=== PATIENT | male | born 1990 | race Caucasian/White ===

== ENCOUNTER 2018-03-21 21:00 | Emergency (ER) | payer OTHER ==
[2018-03-21 21:04] VITALS: BP 147/72
--- NOTE | 2018-03-21 21:32 | EDPHY ---
General Time Seen by Provider: 03/21/18 21:20 Narrative: CHIEF COMPLAINT: I cut my finger HISTORY OF PRESENT ILLNESS: Patient presents by private vehicle with spouse with complaints of cutting his right pinky finger. He states that he was cutting open just prior to arrival when his hand slipped down the knife, accidentally cutting the palmar side of his right 5th finger. He noted some pain at the time which is nearly resolved. Bleeding has stopped with simple pressure. He has no numbness or tingling. No difficulty bending or straightening the finger. No injury to the palm or elsewhere. He reports his tetanus is up-to-date less than 2 years. He has no injury elsewhere. Mild tenderness to palpation. Improved at rest. Does not radiate. No other associated complaints or modifying factors. TIME OF INJURY: Less than 1 hr prior to arrival TETANUS STATUS: Up-to-date less than 2 years MEDICAL/SURGICAL/SOCIAL HISTORY: Uncomplicated. Lives independently with his spouse and child. Nonsmoker. Full -time Linguist most in the [employer] REVIEW OF SYSTEMS: Ten systems reviewed and are negative unless otherwise noted in the HPI EXAMINATION General Appearance: Alert, no distress Head: normocephalic, atraumatic Cardiovascular: Radial pulses are symmetric at 2+. There is brisk cap refill the fingers the right hand. No cyanosis or pallor Neurological: A&O, 2 point sensory symmetric, block mason and interossei strength symmetric Skin: Warm and dry, no rash. 2 cm laceration to the right 5th finger, palmar side over the PIP joint. No exposure of the flexor tendon apparatus. No foreign body. No pulsatile bleeding per Extremities: Minimal tenderness over the right 5th finger laceration. Full extension and flexion including superficialis and profundus. DIFFERENTIAL DIAGNOSES: Including but not limited to laceration, laceration complication, laceration foreign body, laceration with deep tissue injury MDM: 9:20 p.m. 2 cm laceration over the right 5th finger, proximal phalanx, palmar side. No evidence of tendon injury or deep tissue structure injury. No foreign body. No pulsatile bleeding. Tetanus up-to-date. I have administered a digital block. Proceed with irrigation re-evaluation. 9:45 p.m. Wound has been re-evaluated and closed after copious irrigation. Remains range of motion intact good signs of perfusion. Wound was closed without difficulty as below. We discussed simple wound care. We discussed ED precautions. He will return here in 7-10 days for suture removal. Have answered all his questions. Discharged home stable condition. PROCEDURE: Digital Block Indication: Finger laceration Consent: Verbal Location: Right 5th finger Anesthesia: Lidocaine 1% plain, 0.25% Marcaine plain, 5mL Description: Base of the finger was prepped. The above was infused without difficulty. Tolerated well. Good anesthesia. Complications: None PROCEDURE: Laceration repair Consent: Verbal Location: Right 5th finger Length of repair: 2 cm Complexity: Simple Layer involvement: Single Anesthesia: Digital block Irrigation: Extensive Debridement: None Procedure description: Following good anesthesia, the wound was copiously irrigated. Wound bed was explored with a sterile glove, and there is no foreign body noted. Wound borders were approximated well with good hemostasis. Tolerated well without complication. Suture/Staple material: 5-0 Prolene, 2 simple ruptured sutures Wound care: Routine as discussed Suture/Staple removal: 7-10 Days SUPERVISION: This patient was independently evaluated without direct involvement of or examination by the attending physician. ED Precautions: Worsening pain. Erythema, edema, cyanosis, pallor, paresthesia or anesthesia. - History Smoking Status: Never smoked - Objective Vital Signs: Initial Vital Signs Temperature (C) 98.6 F 03/21/18 21:01 Heart Rate 64 03/21/18 21:01 Respiratory Rate 18 03/21/18 21:01 Blood Pressure 147/72 H 03/21/18 21:01 O2 Sat (%) 97 03/21/18 21:01 O2 Delivery Mode Room Air Allergies/Adverse Reactions: No Known Allergies Allergy (Unverified 03/21/18 21:03) Home Medications: Medication Instructions Recorded NK [No Known Home Meds] 03/21/18 Departure - Departure Disposition: Home, Routine, Self-Care Clinical Impression: Laceration of right little finger without damage to nail Qualifiers: Encounter type: initial encounter Foreign body presence: without foreign body Qualified Code(s): S61.216A - Laceration without foreign body of right little finger without damage to nail, initial encounter Condition: Good Instructions: Care For Your Stitches (ED), Laceration (ED) Additional Instructions: 1. Thin layer of bacitracin once daily for the next 2 days 2. Keep the wound covered while showering for the next 3 days 3. Daily wound care as discussed 4. Return here for suture removal in 7-10 days 5. Return here for signs of infection as discussed including warmth, redness, fever, drainage from the site 6. return here for increasing pain surrounding the laceration 7. Do not submerge the wound in any water, hot tub, swimming pool until sutures removed Referrals: Physician,Emergency DeptMD [Medical Doctor] - As per Instructions Yesenia Nick MD [Medical Doctor] - As per Instructions
--- NOTE | 2018-03-28 13:51 | EDPHY ---
NOA Addendum - Addendum .: I was asked to evaluate this patient by the ED valve technician for evaluation of his suture removal. I placed the sutures myself. I evaluated the patient, and he is complaining of difficulty bending the tip of his injured finger. I reviewed my note from previous and he was able to bend the finger at the time of suture repair. He says that over the past few days he has not felt like he could move it very well. He does seem to have deficit in flexion of the D IP joint of the right pinky finger. The suture line is intact and ready for suture removal. I will discuss with the hand surgeon Dr. De Jesus. 1:55 p.m. I discussed with Dr. De Jesus. He would like to see the patient is office early this week. I provided the information to patient. Sutures will be removed be discharged stable condition with follow-up with hand surgeon the next few days.
== END 2018-03-21 21:56 | disposition home or self-care (01) ==
PROC: 0HQFXZZ Repair Right Hand Skin, External Approach (ICD-10-PCS; principal; 2018-03-21)
DX: S61.216A Laceration without foreign body of right little finger without damage to nail, initial encounter (principal); W26.0XXA Contact with knife, initial encounter; Y92.9 Unspecified place or not applicable; Y93.9 Activity, unspecified; Y99.9 Unspecified external cause status

== ENCOUNTER 2018-05-07 13:38 | Day surgery (SDC) | payer OTHER ==
--- NOTE | 2018-05-06 16:34 | PDGENHP ---
History & Physical Chief Complaint: Right small finger flexor tendon laceration History of Present Illness: Erik sustained a laceration to his right small finger FDP approximately 6 weeks ago while carving a pumpkin. Pertinent Past, Social, Family History: PMH: migraines. SH: non-contributory. FH: non-contributory Relevant Physical Exam: Well healed 1.5cm laceration overlying the right small finger volar proximal phalanx. AROM of the MCPJ and PIPJ are full. AROM of the DIPJ 0. PROM of the DIPJ 0-75. Sensation intact to light touch at the radial and ulnar border of the small finger. Cardiorespiratory Assessment: RRR, CTAB
[2018-05-07] MEDS ORDERED: ceFAZolin 2 GM/DEXTROSE 100 ML IV ONE (13:56)
[2018-05-07] MEDS ORDERED: LIDOCAINE 1% 2 ML INJ ID PRN (13:57)
[2018-05-07] MEDS ORDERED: LR 1,000 ML IV ONE (13:57)
[2018-05-07] MEDS ORDERED: MIDAZOLAM 2 MG/2 ML VIAL IVP ONE (15:08)
--- NOTE | 2018-05-07 15:09 | PDANEPAE ---
ANE Past Medical History - Cardiovascular History Hx Hypertension: No Hx Arrhythmias: No Hx Chest Pain: No Hx Coronary Artery / Peripheral Vascular Disease: No Hx CHF / Valvular Disease: No Hx Palpitations: No - Pulmonary History Hx COPD: No Hx Asthma/Reactive Airway Disease: No Hx Recent Upper Respiratory Infection: No Hx Oxygen in Use at Home: No Hx Sleep Apnea: No Sleep Apnea Screening Result - Last Documented: Negative - Neurologic History Hx Cerebrovascular Accident: No Hx Seizures: No Hx Dementia: No - Endocrine History Hx Diabetes: No - Renal History Hx Renal Disorders: No - Liver History Hx Hepatic Disorders: No - Neurological & Psychiatric Hx Hx Neurological and Psychiatric Disorders: No - Cancer History Hx Cancer: No - Congenital Disorder History Hx Congenital Disorders: No - GI History Hx Gastrointestinal Disorders: No - Other Health History Other Health History: NEG - Chronic Pain History Chronic Pain: No - Surgical History Prior Surgeries: APPENDECTOMY ANE Review of Systems Review of Systems: - Exercise capacity METS (RN): 6 METS ANE Patient History - Allergies Allergies/Adverse Reactions: No Known Allergies Allergy (Unverified 03/21/18 21:03) - Home Medications Home Medications: NK [No Known Home Meds] 03/21/18 [Last Taken Unknown] - NPO status NPO Since - Liquids (Date): 05/07/18 NPO Since - Liquids (Time): 11:00 NPO Since - Solids (Date): 05/06/18 NPO Since - Solids (Time): 21:00 - Smoking Hx Smoking Status: Never smoked - Family Anes Hx Family Hx Anesthesia Complications: NEG ANE Labs/Vital Signs - Vital Signs Blood Pressure: 132/80 Heart Rate: 56 Respiratory Rate: 20 O2 Sat (%): 98 Height: 175.26 cm Weight: 90.718 kg ANE Physical Exam - Airway Neck exam: FROM Mallampati Score: Class 1 Mouth exam: normal dental/mouth exam - Pulmonary Pulmonary: no respiratory distress - Cardiovascular Cardiovascular: regular rate and rhythym - ASA Status ASA Status: I ANE Anesthesia Plan Anesthesia Plan: GA w LMA
[2018-05-07] MEDS ORDERED: BUPIVACAINE 0.5% 30 ML SDV ONE (15:25)
[2018-05-07] MEDS ORDERED: fentaNYL 100 MCG/2 ML INJ ONE ×2 (15:51→16:16)
[2018-05-07] MEDS ORDERED: PROPOFOL 200 MG/20 ML VIAL ONE (15:51)
[2018-05-07] MEDS ORDERED: KETOROLAC 30 MG/1 ML SDV ONE (16:01)
[2018-05-07] MEDS ORDERED: LIDOCAINE 2% 100 MG/5 ML SYR ONE (16:01)
[2018-05-07] MEDS ORDERED: DEXAMETHASONE 4 MG/ML VIAL ONE ×2 (16:01)
[2018-05-07] MEDS ORDERED: METOCLOPRAMIDE 10 MG/2 ML VIAL ONE (16:01)
--- NOTE | 2018-05-07 17:55 | POSTOPPROG ---
Post Op Note Date of Operation: 05/07/18 Surgeon: Jennifer De Jesus Anesthesia: LMA Pre-op Diagnosis: r sf tendon laceration Procedure: r sf fdp repair Inf/Abcess present in the surg proc area at time of surgery?: No Depth: Deep Incisional (Fascial) EBL: 50-100
--- NOTE | 2018-05-07 17:55 | PDHPUP ---
History & Physical Update H&P update statement: This history and physical update is based on an assessment of the patient which was completed after admission or registration (within 24 hours), but prior to the surgery/procedure. H&P update: H&P reviewed & patient examined, no change in patient's condition since H&P completed
[2018-05-07] MEDS ORDERED: ACETAMINOPHEN 325 MG TAB PO PRN (17:56)
[2018-05-07] MEDS ORDERED: ONDANSETRON 4 MG/2 ML VIAL IVP PRN ×2 (17:56→17:59)
[2018-05-07] MEDS ORDERED: OXYCODONE/APAP 5/325 TAB PO PRN (17:56)
[2018-05-07] MEDS ORDERED: ACETAMINOPHEN 500 MG TAB PO PRN (17:59)
[2018-05-07] MEDS ORDERED: fentaNYL 100 MCG/2 ML INJ IVP PRN (17:59)
[2018-05-07] MEDS ORDERED: ALBUTEROL 3 ML DEYVIAL IH PRN (17:59)
[2018-05-07] MEDS ORDERED: MEPERIDINE 25 MG/0.5 ML AMP IVP PRN (17:59)
[2018-05-07] MEDS ORDERED: HYDROCODONE/APAP 5/325 TAB PO PRN (17:59)
[2018-05-07] MEDS ORDERED: NALOXONE HCL 0.4 MG/ML INJ IVP PRN (17:59)
--- NOTE | 2018-05-07 17:59 | POSTANESTH ---
Post Anesthetic Evaluation Cardiovascular Status: Similar to Pre-Op Cond Respiratory Status: Similar to Pre-op Cond. Level of Consciousness/Mental Status: Mildly Sleepy, Arousable Pain Control: Adequate, Prn Tx Ordered Nausea/Vomiting Control: Adequate, Prn Tx Ordered Complications Possibly Related to Anesthesia: None Noted
[2018-05-07 19:22] VITALS: BP 121/75
--- NOTE | 2018-05-08 06:13 | GOP ---
DATE OF OPERATION: 05/07/2018 SURGEON: Jennifer De Jesus MD ANESTHESIA: LMA. PREOPERATIVE DIAGNOSIS: Right small finger flexor digitorum profundus laceration. POSTOPERATIVE DIAGNOSIS: Right small finger flexor digitorum profundus laceration. PROCEDURE PERFORMED: Right small finger flexor digitorum profundus tendon repair with tendon sheath repair. FINDINGS: INDICATIONS: This is a 27-year-old male, who approximately 5 weeks ago lacerated his finger while cu tting a pumpkin around [facility]. He was seen in the emergency room. He was diagnosed with a flexor tendon laceration, was sewn up and told to return for evaluation. He was told that he needed surger y in order to repair the tendon, however it took over 4 weeks to get [facility] to be [facility] owed to fix him, at which point, his tendon was retracted well into his palm, based on MRI of informa tion. However he still wished to have surgery in order to resolve the problem. DESCRIPTION OF PROCEDURE: The patient brought to the operating room after the right small finger had been identified as the correct finger by the patient, nurse and physician. Once in the operating ro om, he was placed under general anesthesia using an LMA. Once asleep, tourniquet was placed around t he upper portion of the right arm with right upper extremity sterilely prepped and draped in usual fa shion using GSI solution. Once prepped and draped, limb was exsanguinated, tourniquet inflated to 25 0 mmHg. A diagonal incision was made starting at the flexor crease and near the PIP, starting at the radial border and extending to the ulnar border and extending into the distal phalanx heading toward the radial border again. The incision was then carried proximally ulnarly to the volar crease of th e proximal phalanx. Sharp dissection was carried down through the skin and subcutaneous layers, blee ding controlled using electrocautery. Exploration was carried down onto the tendon sheath. This was noted to have a scarred laceration on its midportion. Dissection was able to easily find the flexor digitorum superficialis, and the stump for the profundus was found near the level of the DIP joint. Once the stump was identified, tendon graft was passed down the tendon sheath to see if we could fin d the tip of the rest of the FDP. Once this was unable to be accomplished, a 2nd incision was made o sunil the distal volar crease of the hand directly over the flexor sheath with sharp dissection carried down through the subcutaneous layers, exposing the tendon sheath below. The tendon sheath was incis ed in that area just proximal to the A1 amelia. The stump was able to be found there. Suture was pas sed through it and the suture was able to be passed proximally into the rest of the wound and was abl e to pull the flexor tendon through the sheath into the surgical area. With gentle flexion across th e wrist and digit, was found to get apposition of the 2 tendon ends. It was therefore decided to do a primary repair rather than a graft from the sublimis. Therefore the tendon ends were cut sharp in order to get good tendon apposition. 2-0 Ethibond suture was woven into the stump using a modified Bu willell stitch such that the knot would be within the tendon itself. Once the suture was tied, gave go od apposition to the tendon ends and then 4-0 Prolene was used in a running stitch around the edge in order to tubularize the tendon as much as possible. Once completed, attention was turned to the she ath which was able to be repaired in its proximal end over the area of the middle phalanx in order to gain some sheath repair in order to minimize any bow stringing that would occur from the tendon itse lf. The palmar wound was then closed in a single layer using 2-0 nylon suture in a running subcuticu lar stitch. Then 3-0 nylon suture was used in a modified Allgower stitch at the corners and not the palmar portions of the skin and closed in a single layer. Once closed, tourniquet was deflated at 78 minutes. 10 cc of Marcaine was infused on either side of the 5th metatarsal shaft and the palmar wo unds dressed with Steri-Strips. All the wounds were then dressed with Xeroform, 4 x 4's, wrapped in Kerlix. The arm was completely undraped in the operating room, tourniquet removed from the arm. A s hort-arm dorsal splint with the ring and small finger kept in flexion was placed on the forearm with an outer layer of Dinesh wrap holding the plaster dressing intact once this plaster had hardened, in ord er to keep the fingers in a flexed position. The patient was woken up, extubated, transferred onto a stretcher, and sent to recovery room in good condition. The patient was noted to have good capillary refill to the tip of the small finger upon completion. TOURNIQUET TIME: 78 minutes. /[id number]/MODL
== END 2018-05-07 18:59 | disposition home or self-care (01) ==
LOC: FSGY 13:38
PROVIDERS: ATTEND Orthopaedic Surgery
PROC: 0LQ70ZZ Repair Right Hand Tendon, Open Approach (ICD-10-PCS; principal; 2018-05-07 15:00)
DX: S66.126A Laceration of flexor muscle, fascia and tendon of right little finger at wrist and hand level, initial encounter (principal); W26.0XXA Contact with knife, initial encounter; Y93.89 Activity, other specified
CPT/HCPCS: J0690; J1100; J1885; J2001; J2250; J2704; J2765; J3010